=== PATIENT | female | born 1995 | race Hispanic/Latino ===

== ENCOUNTER 2018-01-08 10:53 | Emergency (ER) | payer BC, OTHER ==
[2018-01-08 10:57] VITALS: BMI 20.5
[2018-01-08 10:59] VITALS: BP 120/75; PULSE 90; RESP 18; TEMP 98.4; O2SAT 100
[2018-01-08 12:07] LABS: CALCIUM 9.8 mg/dL (8.4-10.2); GFR AFRICAN-AMERICAN > 60; GFR NON-AFRICAN AMERICAN > 60
[2018-01-08 12:09] LABS: BLOOD UREA NITROGEN 12 mg/dl (7-17)
--- NOTE | 2018-01-08 12:29 | US ---
PROCEDURE: HISTORY: RIGHT LOWER QUADRANT PAIN COMPARISON: None TECHNIQUE: FINDINGS: The uterus measures 7.3 x 3.9 x 5.4 centimeters. The endometrium measures 6 millimeters. The ovaries have a normal sonographic appearance. There is free fluid in the pelvis. IMPRESSION: Free fluid in the pelvis. Otherwise unremarkable pelvic ultrasound.
[2018-01-08 13:12] LABS: BASO % 0.3 % (0.0-2.0); EOS % 0.1 % (0.0-4.0); HEMOGLOBIN 13.7 g/dL (12.0-16.0); LYMPH % 13.5 % (20.0-40.0); MEAN CELL VOLUME 89.7 fl (81.0-99.0); MEAN CORPUSCULAR HEMOGLOBIN 31.3 pg (27.0-31.0); MEAN CORPUSCULAR HGB CONC 34.8 g/dL (33.0-37.0); MEAN PLATELET VOLUME 8.2 fl (7.2-11.7); MONO # 0.3 K/uL (0.0-0.8); MONO % 4.8 % (0.0-10.0); NEUT # 5.8 K/uL (1.8-7.0); NEUT % 81.3 % (50.0-75.0); RBC 4.38 Mil/uL (3.80-5.20); RED CELL DISTRIBUTION WIDTH 12.3 % (11.5-14.5); WHITE BLOOD COUNT 7.2 K/uL (4.8-10.8)
--- NOTE | 2018-01-08 13:55 | ED PDOC ---
HPI: Abdomen Time Seen by Provider: 01/08/18 11:20 Chief Complaint (Nursing): Abdominal Pain Chief Complaint (Provider): ABD PAIN History Per: Patient (22 Y/O FEMALE LMP 6 MONTH; BETA HCG POSITIVE AT CLINIC YESTERDAY HERE WITH RLQ PAIN. STATES SHE HAS H/O OVARIAN CYST AND IS NOT CONCERNED ABOUT RIGHT LOWER QUADRANT PAIN. CONCERNED SHE MAY BE .) Past Medical History Reviewed: Historical Data, Nursing Documentation, Vital Signs Vital Signs: Last Vital Signs Temp 98.4 F 01/08/18 10:57 Pulse 90 01/08/18 10:57 Resp 18 01/08/18 10:57 BP 120/75 01/08/18 10:57 Pulse Ox 100 01/08/18 10:57 - Family History Family History: States: No Known Family Hx - Home Medications Home Medications: Ambulatory Orders Medication Instructions Recorded No Known Home Med 01/08/18 - Allergies Allergies/Adverse Reactions: Allergies Allergy/AdvReac Type Severity Reaction Status Date / Time No Known Allergies Allergy Verified 01/08/18 11:10 Review of Systems ROS Statement: Except As Marked, All Systems Reviewed And Found Negative Physical Exam - Reviewed Nursing Documentation Reviewed: Yes Vital Signs Reviewed: Yes - Physical Exam Appears: Positive for: Well, Non-toxic, No Acute Distress Head Exam: Positive for: ATRAUMATIC, NORMAL INSPECTION, NORMOCEPHALIC Skin: Positive for: Normal Color, Warm, DRY Eye Exam: Positive for: EOMI, Normal appearance, PERRL ENT: Positive for: Normal ENT Inspection Neck: Positive for: Normal, Painless ROM Cardiovascular/Chest: Positive for: Regular Rate, Rhythm Respiratory: Positive for: CNT, Normal Breath Sounds Gastrointestinal/Abdominal: Positive for: Normal Exam, Soft Back: Positive for: Normal Inspection Extremity: Positive for: Normal ROM Neurologic/Psych: Positive for: Alert, Oriented - Laboratory Results Result Diagrams: 01/08/18 13:06 01/08/18 11:34 - ECG O2 Sat by Pulse Oximetry: 100 - Progress ED Course And Treament: TRANSVAGINAL US: WNL BETA HCG NOT POSITIVE IN ED D/W PATIENT. SHE DOES NOT WANT PELVIC EXAM HERE. PLANS F/U WITH [facility] IN [place] ON TUESDAY. Disposition - Clinical Impression Clinical Impression: Abdominal pain in female - Patient ED Disposition Is Patient to be Admitted: No - Disposition [facility] Disposition: Routine/Home Disposition Time: 13:54 Condition: FAIR
== END 2018-01-08 14:08 | disposition home or self-care (01) ==
LOC: H.ER 10:53
DX: O26.899 Other specified pregnancy related conditions, unspecified trimester (principal)